=== PATIENT | male | born 1955 | race Caucasian/White ===

== ENCOUNTER 2018-01-31 15:31 | Observation (INO) ==
[2018-01-31] MEDS ORDERED: Sod Chloride 0.9% Inj 1,000 ML IV.SIG ONE (15:57)
--- NOTE | 2018-01-31 16:13 | ED ---
HPI General Chief Complaint: Syncope Stated Complaint: Syncope Time Seen by Provider: 01/31/18 15:57 Source: patient and EMS Mode of arrival: EMS Limitations: no limitations History of Present Illness HPI narrative: Patient is a 62-year-old male presenting to the [facility] for evaluation after syncopal episode. Patient was standing in line at [facility] when he passed out. Patient was reportedly out for approximately 30 seconds per bystanders report. There was positive LOC, patient did hit his head. Patient states he felt dizzy and everything went black prior to this episode. He denies any chest pain, shortness of breath, headache. He denied any of the symptoms other than lightheadedness prior to passing out. When EMS arrived on scene patient was pale, diaphoretic and his heart rate was in the 30s. Patient received a 500 cc fluid bolus in route. He reports drinking 2 beers today, he ate lunch. He denies any daily alcohol use, he is a tobacco user, he denies any illicit drug use. He denies any history of syncopal episodes in the past. He denies any significant past medical history. Symptom onset was sudden, symptoms moderate, no known exacerbating factors. Related Data Home Medications Medication Instructions Recorded Confirmed varenicline [Chantix] 0.5 mg PO BID 01/31/18 01/31/18 Allergies Allergy/AdvReac Type Severity Reaction Status Date / Time No Known Allergies Allergy Verified 01/31/18 15:45 Review of Systems ROS: all other systems reviewed are negative PMFSH Medical History Medical History Patient denies medical problems (Acute) Surgical History Surgical History No history of previous surgery (Acute) Social History Social History Substance History: No History of Abuse Smoking Status: Current every day smoker Tobacco Type: Cigarettes How Often Do You Have a Drink Containing Alcohol: 2 to 4 times a month [facility] within the Last 8 Weeks: No Recent Out of Country Travel within the Last 8 Weeks: No Immunization History Tetanus Immunization: Unsure Exam Narrative Exam Narrative: GENERAL: Well-developed, well-nourished, alert elderly male. Presenting in no acute distress. SKIN: Focused skin assessment warm/dry. HEAD: Atraumatic. Normocephalic. EYES: Pupils equal and round. No scleral icterus. No injection or drainage. ENT: No nasal bleeding or discharge. Mucous membranes pink and moist. NECK: Trachea midline. No JVD. CARDIOVASCULAR: Bradycardic. No murmur appreciated. RESPIRATORY: No accessory muscle use. Clear to auscultation. Breath sounds equal bilaterally. GASTROINTESTINAL: Abdomen soft, non-tender, nondistended. Hepatic and splenic margins not palpable. MUSCULOSKELETAL: No obvious deformities. No clubbing. No cyanosis. No edema. NEUROLOGICAL: Awake and alert. No obvious cranial nerve deficits. Motor grossly within normal limits. Normal speech. PSYCHIATRIC: Appropriate mood and affect; insight and judgment normal. Course Initial Documented Vital Signs Temperature 97.8 F 01/31/18 15:39 Pulse Rate 51 L 01/31/18 15:39 Respiratory Rate 16 01/31/18 15:39 Blood Pressure 111/71 01/31/18 15:39 Pulse Oximetry 99 01/31/18 15:39 Last Documented Vital Signs Temperature 97.8 F 01/31/18 15:39 Pulse Rate 51 L 01/31/18 15:39 Respiratory Rate 16 01/31/18 15:39 Blood Pressure 111/71 01/31/18 15:39 Pulse Oximetry 99 01/31/18 15:39 Medical Decision Making MDM Narrative Medical decision making narrative: Patient presents via EMS after syncopal episode. Labs and imaging ordered and pending. Initial EKG shows sinus bradycardia with a rate of 50. Patient's vital signs are otherwise stable. Labs reviewed, no acute findings. CT of the brain and cervical spine with no acute findings, chest x-ray is unremarkable. Heart rate continues to be in the mid to low 50s, could be the cause of patient's syncopal episodes. Patient will be admitted, the residents accepted admit under Dr. Quispe. Admit orders placed. Patient was advised on clinical findings and plan of care and is agreeable. Medical Screen Exam Complete: Yes Emergency Medical Condition: Yes Differential Diagnosis Differential Diagnosis: Vasovagal episode versus symptomatic bradycardia versus metabolic abnormality versus other Lab Data Lab results reviewed: Yes I reviewed the patient's lab results. Result diagrams: 01/31/18 16:56 01/31/18 16:56 Lab Results 01/31/18 01/31/18 01/31/18 Range/Units 16:56 16:56 16:56 WBC 7.4 (4.0-11.0) th/mm3 RBC 3.96 L (4.50-5.90) mil/mm3 Hgb 13.3 (13.0-17.0) gm/dL Hct 37.3 L (39.0-51.0) % MCV 94.1 (80.0-100.0) fL MCH 33.6 (27.0-34.0) pg MCHC 35.7 (32.0-36.0) % RDW 13.2 (11.6-17.2) % Plt Count 211 (150-450) th/mm3 MPV 8.2 (7.0-11.0) fL Neut % (Auto) 52.8 (16.0-70.0) % Lymph % (Auto) 38.2 (9.0-44.0) % Nolan % (Auto) 6.9 (0.0-8.0) % Eos % (Auto) 1.9 (0.0-4.0) % Baso % (Auto) 0.2 (0.0-2.0) % Neut # (Auto) 3.9 (1.8-7.7) th/mm3 Lymph # (Auto) 2.8 (1.0-4.8) th/mm3 Nolan # (Auto) 0.5 (0.0-0.9) th/mm3 Eos # (Auto) 0.1 (0.0-0.4) th/mm3 Baso # (Auto) 0.0 (0.0-0.2) th/mm3 WBC Differential . Differential Comment Auto diff final PT 10.6 (9.8-11.6) sec INR 1.0 Ratio APTT 23.1 L (23.4-31.7) sec Sodium 143 (136-145) meq/L Potassium 3.5 (3.5-5.1) meq/L Chloride 112 H (98-107) meq/L Carbon Dioxide 26.6 (21.0-32.0) meq/L Anion Gap 4 L (5-15) meq/L BUN 19 H (7-18) mg/dL Creatinine 1.12 (0.60-1.30) mg/dL Estimated GFR 66 L (>89) mL/min Random Glucose 86 (74-106) mg/dL Calcium 7.1 L* (8.5-10.1) mg/dL Prot Corrected Calcium 7.8 L (8.5-10.1) mg/dL Magnesium 1.9 (1.5-2.5) mg/dL Total Bilirubin 0.3 (0.2-1.0) mg/dL AST 9 L (15-37) U/L ALT 13 (12-78) U/L Alkaline Phosphatase 39 L (45-117) U/L Troponin I Less than 0.02 L (0.02-0.05) ng/mL Total Protein 5.7 L (6.4-8.2) g/dL Albumin 3.0 L (3.4-5.0) g/dL Imaging Data Radiologist's impression: Cervical Spine CT 01/31/18 15:57 CONCLUSION: 1. No acute fracture or subluxation. Chest X-Ray 01/31/18 15:57 CONCLUSION: 1. No acute cardiopulmonary disease. Head CT 01/31/18 15:57 CONCLUSION: 1. No acute intracranial abnormality. . Discharge Plan Discharge Disposition Patient Disposition: 30 Still Patient Discharge Condition Condition: Stable Discharge Details Diagnosis: Syncope, Symptomatic bradycardia Physicians Team ED Provider: Heide Orellana ED Midlevel Provider: Triny Diane Primary Care Provider: UNKNOWN, Rxs /Orders / Referrals /Forms Prescriptions: No Action varenicline [Chantix] 0.5 mg Tablet 0.5 mg PO BID RF: 0 Status ED Status: Admitted Observation Patient
--- NOTE | 2018-01-31 16:41 | XR ---
EXAM DATE: 01/31/2018 4:40 PM EST AGE/SEX: 62 years / Male INDICATIONS: Patient states an episode of syncope, feeling of general weakness. CLINICAL DATA: This is the patient's initial encounter. Patient reports that signs and symptoms have been present for 1 day and indicates a pain score of 0/10. MEDICAL/SURGICAL HISTORY: None. None. COMPARISON: No prior exams available for comparison. FINDINGS: A single AP view of the chest demonstrates the lungs to be symmetrically aerated without evidence of mass, infiltrate or effusion. The cardiomediastinal contours are unremarkable. Osseous structures a re intact. CONCLUSION: 1. No acute cardiopulmonary disease. Electronically signed by: Fede Dangelo MD 01/31/2018 4:40 PM EST
[2018-01-31 17:20] LABS: Baso % (Auto) 0.2 % (0.0-2.0); Eos # (Auto) 0.1 th/mm3 (0.0-0.4); Eos % (Auto) 1.9 % (0.0-4.0); Hematocrit 37.3 % (39.0-51.0); Hemoglobin 13.3 gm/dL (13.0-17.0); Lymph # (Auto) 2.8 th/mm3 (1.0-4.8); Lymph % (Auto) 38.2 % (9.0-44.0); Mean Corpuscular HGB Conc 35.7 % (32.0-36.0); Mean Corpuscular Hemoglobin 33.6 pg (27.0-34.0); Mean Corpuscular Volume 94.1 fL (80.0-100.0); Mean Platelet Volume 8.2 fL (7.0-11.0); Mono # (Auto) 0.5 th/mm3 (0.0-0.9); Mono % (Auto) 6.9 % (0.0-8.0); Neut # (Auto) 3.9 th/mm3 (1.8-7.7); Neut % (Auto) 52.8 % (16.0-70.0); Platelet Count 211 th/mm3 (150-450); Red Blood Count 3.96 mil/mm3 (4.50-5.90); Red Cell Distribution Width 13.2 % (11.6-17.2); White Blood Count 7.4 th/mm3 (4.0-11.0)
[2018-01-31 17:28] LABS: Activated Partial Thrombo Time 23.1 sec (23.4-31.7); Prothrombin Time 10.6 sec (9.8-11.6)
[2018-01-31 17:45] LABS: Alanine Aminotransferase 13 U/L (12-78); Anion Gap 4 meq/L (5-15); Aspartate Aminotransferase 9 U/L (15-37); Blood Urea Nitrogen 19 mg/dL (7-18); Calcium 7.1 mg/dL (8.5-10.1); Carbon Dioxide 26.6 meq/L (21.0-32.0); Chloride 112 meq/L (98-107); Glomerular Filtration Rate 66 mL/min (>89); Glucose,Random 86 mg/dL (74-106); Magnesium 1.9 mg/dL (1.5-2.5); Potassium 3.5 meq/L (3.5-5.1); Sodium 143 meq/L (136-145)
--- NOTE | 2018-01-31 17:48 | CT ---
EXAM DATE: 01/31/2018 5:46 PM EST AGE/SEX: 62 years / Male INDICATIONS: Syncopal episode; fall. CLINICAL DATA: This is the patient's initial encounter. Patient reports that signs and symptoms have been present for 1 day and indicates a pain score of 5/10. MEDICAL/SURGICAL HISTORY: None. None. RADIATION DOSE: 66.34 CTDI (mGy) COMPARISON: No prior exams available for comparison. TECHNIQUE: CT of the head without contrast. Using automated exposure control and adjustment of the mA and/or kV according to patient size, radiation dose was kept as low as reasonably achievable to ob tain optimal diagnostic quality images. DICOM format image data is available electronically for revi ew and comparison. FINDINGS: Cerebrum: Mild diffuse cerebral atrophy. The ventricles are normal for age. No evidence of midline s hift, mass lesion, hemorrhage or acute infarction. No extraaxial fluid collections are seen. Posterior Fossa: The cerebellum and brainstem are intact. The 4th ventricle is midline. The cerebe llopontine angle is unremarkable. Extracranial: The visualized portion of the orbits is intact. Skull: The calvaria is intact. No evidence of skull fracture. CONCLUSION: 1. No acute intracranial abnormality. . Electronically signed by: Fede Dangelo MD 01/31/2018 5:47 PM EST
[2018-01-31 17:50] LABS: Alkaline Phosphatase 39 U/L (45-117); Total Protein 5.7 g/dL (6.4-8.2)
--- NOTE | 2018-01-31 17:51 | CT ---
EXAM DATE: 01/31/2018 5:47 PM EST AGE/SEX: 62 years / Male INDICATIONS: Fall following syncopal episode. CLINICAL DATA: This is the patient's initial encounter. Patient reports that signs and symptoms have been present for 1 day and indicates a pain score of 5/10. MEDICAL/SURGICAL HISTORY: None. None. RADIATION DOSE: 20.44 CTDI (mGy) COMPARISON: No prior exams available for comparison. TECHNIQUE: Contiguous axial images were obtained using helical multirow detector technique. The vol umetric data was post-processed with multiplanar reconstruction in oblique axial, sagittal, and coron al planes. Using automated exposure control and adjustment of the mA and/or kV according to patient s ize, radiation dose was kept as low as reasonably achievable to obtain optimal diagnostic quality jerson ges. DICOM format image data is available electronically for review and comparison. FINDINGS: OSSEOUS STRUCTURES: Vertebral body heights are maintained. Osseous structures are intact without evid ence for acute bony fracture. Dens is intact. ALIGNMENT: Sagittal alignment is maintained. There is a normal C1-2 relationship. Facets are normal ly aligned. SOFT TISSUES: There is no significant prevertebral soft tissue hematoma. No significant cervical sharon nopathy or gross mass. The thyroid appears unremarkable. Visualized lung apices are clear without pn eumothorax. ADDITIONAL FINDINGS: Mild degenerative changes of the lower cervical spine most prominently at C6-7. Bony central canal is patent. Bony neural foramina are patent. CONCLUSION: 1. No acute fracture or subluxation. Electronically signed by: Fede Dangelo MD 01/31/2018 5:49 PM EST
--- NOTE | 2018-01-31 19:02 | P.HPFP ---
History of Present Illness Primary Care Physician: UNKNOWN <Orestes Quispe 02/01/18 20:43> UNKNOWN <Jagdish Flower 01/31/18 19:02> History of Present Illness: 62-year-old male with no significant past medical history who is in [facility] visiting his daughters for the holidays presented to the emergency room after a syncopal episode. Patient was in his normal state of health and states on the day of admission he had lunch with his daughters and a couple of beers (doesn't normally drink alcohol). He states he normally drinks juice/water throughout the day but today he only had the beers and coffee in the morning. He then accompanied his daughter to a bingo ervin while standing in a crowded/warm area he fainted. He states he remembers being agitated that the line was moving slowly and the next thing he knew he was on the ground. Witnesses stated he fell to the ground and hit his head - was told he was out for roughly 30 seconds. He was told he stood back up and fainted again but he does not recall this. Witnesses also stated he appeared very pale and diaphoretic. EMS was called and they reported a HR in the 30's on arrival. Patient states he has "had a slow heart rate his whole life." He states he never had any pain and denies any pain now. no loss of bowel/urinary incontinence No chest pain, SOB, N/V, vision changes, SRIVASTAVA, diarrhea, vomiting PMH: none Past surgical hx: none Family Hx: mother had cervical cancer, father in old age Meds: Chantix Allergies: NKDA Social history: lives in [place] works in a warehouse, is currently taking Chantix to help him quit smoking (had been 1 ppd for 40 years but has weaned to less than 1/4 ppd), rare alcohol use, no drugs <Jagdish Flower 01/31/18 20:04> - Diagnosis (1) Syncope (2) Hypocalcemia (3) Nutrition, metabolism, and development symptoms <AdarshOrestes ibanez 02/01/18 20:43> (1) Syncope (2) Hypocalcemia (3) Nutrition, metabolism, and development symptoms <Jagdish Flower 01/31/18 19:30> Review of Systems All other systems reviewed negative except as stated in HPI <Jagdish Flower - 01/31/18 20:04> FOR[facility]LY [facility] - History History Provided By: Patient <Jagdish Flower 01/31/18 19:02> - Medical History Medical History: Medical History (Last Reviewed 01/31/18 @ 16:11 by ANABEL Bermudez) Patient denies medical problems <Orestes Quispe 02/01/18 20:43> Medical History (Last Reviewed 01/31/18 @ 16:11 by ANABEL Bermudez) Patient denies medical problems <Jagdish Flower 01/31/18 19:02> - Surgical History Surgical History: Surgical History (Last Reviewed 01/31/18 @ 16:11 by ANABEL Bermudez) No history of previous surgery <Orestes Quispe Paul Joe 02/01/18 20:43> Surgical History (Last Reviewed 01/31/18 @ 16:11 by ANABEL Bermudez) No history of previous surgery <Jagdish Flower 01/31/18 19:02> - Tobacco History Tobacco Use In Past 30 Days: Yes <Jagdish Flower 01/31/18 19:02> Smoking Status: Current every day smoker <Jagdish Flower 01/31/18 19:02> Tobacco Type: Cigarettes <Jagdish Flower 01/31/18 19:02> - Alcohol History How Often Do You Have a Drink Containing Alcohol: 2 to 4 times a month <Jagdish Flower 01/31/18 19:02> - Substance Use History Substance History: No History of Abuse <Jagdish Flower 01/31/18 19:02> - Travel History Recent Travel in the [facility] Within the Last 8 Weeks: No <Jagdish Flower 01/31 19:02> Recent Travel Out of the Country Within the Last 8 Weeks: No <Jagdish Flower 01/31/18 19:02> - Immunization History Tetanus Immunization: Unsure <Jagdish Flower 01/31/18 19:02> Medications and Allergies Allergies Allergy/AdvReac Type Severity Reaction Status Date / Time No Known Allergies Allergy Verified 01/31/18 15:45 <Orestes Quispe 02/01/18 20:43> Home Medications Medication Instructions Recorded Confirmed Type varenicline [Chantix] 0.5 mg PO BID 01/31/18 01/31/18 History <Orestes Quispe - 02/01/18 20:43> Active Medications: Active Medications Acetaminophen (Tylenol) 650 mg PO Q6HR PRN PRN Reason: PAIN SCALE 1 TO 2 Last Admin: 02/01/18 14:05 Dose: 650 mg Vitamin D (Vitamin D3) 1,000 unit PO DAILY RODOLFO <Orestes Quispe - 02/01/18 20:43> Exam Vital signs: Vital Signs 01/31/18 22:15 02/01/18 00:00 02/01/18 03:44 Temperature 98.1 F Pulse Rate 49 L 56 L Respiratory Rate 20 Blood Pressure 124/68 Pulse Oximetry 99 98 02/01/18 07:54 02/01/18 08:00 02/01/18 12:13 Temperature 97.9 F 97.5 F L Pulse Rate 44 L 72 43 L Respiratory Rate 16 18 Blood Pressure 123/73 128/68 Pulse Oximetry 97 98 02/01/18 16:48 Temperature 98.0 F Pulse Rate 45 L Respiratory Rate 18 Blood Pressure 146/77 H Pulse Oximetry 95 Intake & Output 02/01/18 02/01/18 02/02/18 06:59 18:59 06:59 Intake Total 480 / 480 Balance 480 / 480 Weight 90.718 kg Intake: Oral 480 / 480 Other: # Voids 5 4 Weight On Admission 90.718 kg <Orestes Quispe - 02/01/18 20:43> Vital Signs 01/31/18 15:39 Temperature 97.8 F Pulse Rate 51 L Respiratory Rate 16 Blood Pressure 111/71 Pulse Oximetry 99 Intake & Output 01/30/18 01/31/18 01/31/18 18:59 06:59 18:59 Intake Total 1000 / 1000 Balance 1000 / 1000 Weight 91.626 kg Intake: IV 1000 / 1000 NS Inj 1,000 ML @ Wide Open IV. 1000 / 1000 SIG BOLUS ONE Rx#:[id number] <Jagdish Flower - 01/31/18 19:02> Narrative: GENERAL: Pleasant gentleman laying in bed in no acute distress. Answering questions appropriately. SKIN: Warm and dry. HEAD: Atraumatic. Normocephalic. No tenderness on exam EYES: Pupils equal and round. No scleral icterus. No injection or drainage. ENT: No nasal bleeding or discharge. Mucous membranes pink and moist. NECK: Trachea midline. No JVD. CARDIOVASCULAR: Regular rate and rhythm. Heart rate in the 50s RESPIRATORY: No accessory muscle use. Clear to auscultation. Breath sounds equal bilaterally. GASTROINTESTINAL: Abdomen soft, non-tender, nondistended. Hepatic and splenic margins not palpable. MUSCULOSKELETAL: Extremities without clubbing, cyanosis, or edema. No obvious deformities. NEUROLOGICAL: Awake and alert. No cranial nerve deficits. Motor grossly within normal limits. Five out of 5 muscle strength in the arms and legs. Normal speech. PSYCHIATRIC: Appropriate mood and affect; insight and judgment normal. <Jagdish Flower - 01/31/18 20:04> Results - Labs Result diagrams: 02/01/18 06:36 02/01/18 06:36 <Orestes Quispe - 02/01/18 20:43> Abnormal lab results 01/31/18 01/31/18 01/31/18 Range/Units 16:56 16:56 18:49 RBC (4.50-5.90) mil/mm3 Hgb (13.0-17.0) gm/dL Hct (39.0-51.0) % Chloride (98-107) meq/L Estimated GFR (>89) mL/min Calcium (8.5-10.1) mg/dL Troponin I (0.02-0.05) ng/mL Vitamin D 25-Hydroxy 20.0 L (30-100) ng/mL TSH 4.620 H (0.358-3.740) uIU/mL U Cannabinoids Screen Pos H (Neg) 02/01/18 02/01/18 02/01/18 Range/Units 06:36 06:36 06:36 RBC 4.06 L (4.50-5.90) mil/mm3 Hgb 12.9 L (13.0-17.0) gm/dL Hct 38.6 L (39.0-51.0) % Chloride 111 H (98-107) meq/L Estimated GFR 70 L (>89) mL/min Calcium 8.0 L D (8.5-10.1) mg/dL Troponin I Less than 0.02 L (0.02-0.05) ng/mL Vitamin D 25-Hydroxy (30-100) ng/mL TSH (0.358-3.740) uIU/mL U Cannabinoids Screen (Neg) Short CBC 02/01/18 Range/Units 06:36 WBC 7.6 (4.0-11.0) th/mm3 Hgb 12.9 L (13.0-17.0) gm/dL Hct 38.6 L (39.0-51.0) % Plt Count 192 (150-450) th/mm3 [facility] 02/01/18 06:36 Sodium 142 Potassium 4.2 Chloride 111 H Carbon Dioxide 25.7 BUN 16 Creatinine 1.06 Calcium 8.0 L D Cardiac Enzymes 02/01/18 Range/Units 06:36 Troponin I Less than 0.02 L (0.02-0.05) ng/mL <Orestes Quispe - 02/01/18 20:43> Abnormal lab results 01/31/18 01/31/18 01/31/18 Range/Units 16:56 16:56 16:56 RBC 3.96 L (4.50-5.90) mil/mm3 Hct 37.3 L (39.0-51.0) % APTT 23.1 L (23.4-31.7) sec Chloride 112 H (98-107) meq/L Anion Gap 4 L (5-15) meq/L BUN 19 H (7-18) mg/dL Estimated GFR 66 L (>89) mL/min Calcium 7.1 L* (8.5-10.1) mg/dL Prot Corrected Calcium 7.8 L (8.5-10.1) mg/dL AST 9 L (15-37) U/L Alkaline Phosphatase 39 L (45-117) U/L Troponin I Less than 0.02 L (0.02-0.05) ng/mL Total Protein 5.7 L (6.4-8.2) g/dL Albumin 3.0 L (3.4-5.0) g/dL Short CBC 01/31/18 Range/Units 16:56 WBC 7.4 (4.0-11.0) th/mm3 Hgb 13.3 (13.0-17.0) gm/dL Hct 37.3 L (39.0-51.0) % Plt Count 211 (150-450) th/mm3 [facility] 01/31/18 16:56 Sodium 143 Potassium 3.5 Chloride 112 H Carbon Dioxide 26.6 BUN 19 H Creatinine 1.12 Calcium 7.1 L* Cardiac Enzymes 01/31/18 Range/Units 16:56 Troponin I Less than 0.02 L (0.02-0.05) ng/mL Liver Function 01/31/18 Range/Units 16:56 Total Bilirubin 0.3 (0.2-1.0) mg/dL AST 9 L (15-37) U/L ALT 13 (12-78) U/L Alkaline Phosphatase 39 L (45-117) U/L Albumin 3.0 L (3.4-5.0) g/dL <Jagdish Flower - 01/31/18 19:02> - Imaging Impressions Cervical Spine CT 01/31/18 15:57 CONCLUSION: 1. No acute fracture or subluxation. Chest X-Ray 01/31/18 15:57 CONCLUSION: 1. No acute cardiopulmonary disease. Head CT 01/31/18 15:57 CONCLUSION: 1. No acute intracranial abnormality. . <Jagdish Flower - 01/31/18 19:02> Caprini VTE Risk Assessment Caprini VTE Risk Assessment: Moderate/High Risk (score >= 2) <Jagdish Flower - 01/31/18 20:04> Caprini Risk Assessment Model: Point Value = 1 Point Value = 2 Point Value = 3 Point Value = 5 Age 41-60 Minor surgery BMI > 25 kg/m2 Swollen legs Varicose veins or History of unexplained or recurrent spontaneous Oral contraceptives or hormone replacement Sepsis (< 1 month) Serious lung disease, including pneumonia (< 1 month) Abnormal pulmonary function Acute myocardial infarction Congestive heart failure (< 1 month) History of inflammatory bowel disease Medical patient at bed rest Age 61-74 Arthroscopic surgery Major open surgery (> 45 min) Laparoscopic surgery (> 45 min) Malignancy Confined to bed (> 72 hours) Immobilizing plaster cast Central venous access Age >= 75 History of VTE Family history of VTE Factor V Leiden Prothrombin [id number] Lupus anticoagulant Anticardiolipin antibodies Elevated serum homocysteine Heparin-induced thrombocytopenia Other congenital or acquired thrombophilia Stroke (< 1 month) Elective arthroplasty Hip, pelvis, or leg fracture Acute spinal cord injury (< 1 month) <Orestes Quispe - 02/01/18 20:43> Point Value = 1 Point Value = 2 Point Value = 3 Point Value = 5 Age 41-60 Minor surgery BMI > 25 kg/m2 Swollen legs Varicose veins or History of unexplained or recurrent spontaneous Oral contraceptives or hormone replacement Sepsis (< 1 month) Serious lung disease, including pneumonia (< 1 month) Abnormal pulmonary function Acute myocardial infarction Congestive heart failure (< 1 month) History of inflammatory bowel disease Medical patient at bed rest Age 61-74 Arthroscopic surgery Major open surgery (> 45 min) Laparoscopic surgery (> 45 min) Malignancy Confined to bed (> 72 hours) Immobilizing plaster cast Central venous access Age >= 75 History of VTE Family history of VTE Factor V Leiden Prothrombin [id number] Lupus anticoagulant Anticardiolipin antibodies Elevated serum homocysteine Heparin-induced thrombocytopenia Other congenital or acquired thrombophilia Stroke (< 1 month) Elective arthroplasty Hip, pelvis, or leg fracture Acute spinal cord injury (< 1 month) <Jagdish Flower B - 01/31/18 20:04> Prophylaxis Regimen: Total Risk Factor Score Risk Level Prophylaxis Regimen 0-1 Low Early ambulation 2 Moderate Order ONE of the following: *Sequential Compression Device (SCD) *Heparin 5000 units SQ BID 3-4 Higher Order ONE of the following medications: *Heparin 5000 units SQ TID *Enoxaparin/Lovenox 40 mg SQ daily (WT < 150 kg, CrCl > 30 mL/min) *Enoxaparin/Lovenox 30 mg SQ daily (WT < 150 kg, CrCl > 10-29 mL/min) *Enoxaparin/Lovenox 30 mg SQ BID (WT < 150 kg, CrCl > 30 mL/min) AND/OR *Sequential Compression Device (SCD) 5 or more Highest Order ONE of the following medications: *Heparin 5000 units SQ TID (Preferred with Epidurals) *Enoxaparin/Lovenox 40 mg SQ daily (WT < 150 kg, CrCl > 30 mL/min) *Enoxaparin/Lovenox 30 mg SQ daily (WT < 150 kg, CrCl > 10-29 mL/min) *Enoxaparin/Lovenox 30 mg SQ BID (WT < 150 kg, CrCl > 30 mL/min) AND *Sequential Compression Device (SCD) <Orestes Quispe - 02/01/18 20:43> Total Risk Factor Score Risk Level Prophylaxis Regimen 0-1 Low Early ambulation 2 Moderate Order ONE of the following: *Sequential Compression Device (SCD) *Heparin 5000 units SQ BID 3-4 Higher Order ONE of the following medications: *Heparin 5000 units SQ TID *Enoxaparin/Lovenox 40 mg SQ daily (WT < 150 kg, CrCl > 30 mL/min) *Enoxaparin/Lovenox 30 mg SQ daily (WT < 150 kg, CrCl > 10-29 mL/min) *Enoxaparin/Lovenox 30 mg SQ BID (WT < 150 kg, CrCl > 30 mL/min) AND/OR *Sequential Compression Device (SCD) 5 or more Highest Order ONE of the following medications: *Heparin 5000 units SQ TID (Preferred with Epidurals) *Enoxaparin/Lovenox 40 mg SQ daily (WT < 150 kg, CrCl > 30 mL/min) *Enoxaparin/Lovenox 30 mg SQ daily (WT < 150 kg, CrCl > 10-29 mL/min) *Enoxaparin/Lovenox 30 mg SQ BID (WT < 150 kg, CrCl > 30 mL/min) AND *Sequential Compression Device (SCD) <Jagdish Flower B - 01/31/18 19:02> Assessment and Plan - Assessment (1) Syncope Code(s): R55 - Syncope and collapse Status: Acute (2) Hypocalcemia Code(s): E83.51 - Hypocalcemia Status: Acute (3) Nutrition, metabolism, and development symptoms Code(s): R63.8 - Other symptoms and signs concerning food and fluid intake Status: Acute <Orestes Quispe - 02/01/18 20:43> (1) Syncope Code(s): R55 - Syncope and collapse Status: Acute Plan: Patient with no significant past medical history presented after an episode of syncope in which he struck his head Denies any chest pain, shortness of breath, headache or changes in vision Was reported to be diaphoretic, noted to have pallor, occurred in a warm/ crowded place EMS reported a HR in the 30's on arrival. Vital signs on admission were within normal limits aside from a heart rate in the 50s Differential includes vaso-vagal syncope, symptomatic bradycardia, orthostatic hypotension -Head CT, cervical spine CT, and chest x-ray were all negative -EKG on admission showed sinus bradycardia with a heart rate of 50 -UA benign, CMP significant only for hypocalcemia. Troponin negative. CBC WNL -Will admit to observation overnight -Continuous telemetry -TSH pending -Ordering orthostatic blood pressures x1 -Received 1 L bolus of normal saline in the ED -Repeat CBC, BMP in the morning (2) Hypocalcemia Code(s): E83.51 - Hypocalcemia Status: Acute Plan: CMP on admission notable for hypocalcemia with a calcium of 7.8 -Magnesium within normal limits on admission -Ordering vitamin D level -Repeat BMP in the morning (3) Nutrition, metabolism, and development symptoms Code(s): R63.8 - Other symptoms and signs concerning food and fluid intake Status: Acute Plan: Regular diet SCD's for DVT prophylaxis overnight, consider adding pharmacologic prophylaxis if patient stays longer than 1 day Will replace electrolytes as needed <Jagdish Flower - 01/31/18 19:30> - Assessment and Plan 62-year-old male with no significant past medical history presented after an episode of syncope. Differential includes vasovagal syncope, symptomatic bradycardia, orthostatic hypotension. Admitting observation for further monitoring. <Jagdish Flower - 01/31/18 20:04> - Attending Attestation The exam, history, and the medical decision-making described in the above note were completed with the assistance of the resident physician. I reviewed and agree with the findings presented. I attest that I had a [id number] encounter with the patient on the next day, and personally performed and documented my assessment and findings in the medical record. <Orestes Quispe - 02/01/18 20:43> <Jagdish Flower - Last Filed: 01/31/18 19:30> (1) Syncope Qualifiers: Syncope type: unspecified Qualified Code(s): R55 - Syncope and collapse <Orestes Quispe - Last Filed: 02/01/18 20:43> (1) Syncope Qualifiers: Syncope type: unspecified Qualified Code(s): R55 - Syncope and collapse <Jagdish Flower B - Last Filed: 01/31/18 19:30> (1) Syncope Qualifiers: Syncope type: unspecified Qualified Code(s): R55 - Syncope and collapse <Orestes Quispe K - Last Filed: 02/01/18 20:43> (1) Syncope Qualifiers: Syncope type: unspecified Qualified Code(s): R55 - Syncope and collapse
[2018-01-31 19:18] LABS: Bilirubin,Urine Negative (Negative); Clarity,Urine Clear (Clear); Color,Urine Yellow (Yellw/Straw); Glucose,Urine (UA) Negative (Negative); Hyaline Casts,Urine 3 /lpf (0-3); Leukocyte Esterase,Urine Negative (Negative); Mucus,Urine Few /lpf (Occasional); Nitrite,Urine Negative (Negative); Specific Gravity,Urine 1.011 (1.002-1.035); Squamous Epithelial Cell,Urine <1 /hpf (0-5)
[2018-01-31 21:25] LABS: Amphetamine Screen,Urine Neg (Neg); Barbiturate Screen,Urine Neg (Neg); Cannabinoid Screen,Urine Pos (Neg); Cocaine Screen,Urine Neg (Neg)
[2018-01-31 21:28] LABS: Opiate Screen,Urine Neg (Neg)
[2018-02-01 07:10] LABS: Eos # (Auto) 0.2 th/mm3 (0.0-0.4); Eos % (Auto) 2.6 % (0.0-4.0); Hematocrit 38.6 % (39.0-51.0); Hemoglobin 12.9 gm/dL (13.0-17.0); Lymph # (Auto) 2.6 th/mm3 (1.0-4.8); Lymph % (Auto) 34.2 % (9.0-44.0); Mean Corpuscular HGB Conc 33.3 % (32.0-36.0); Mean Corpuscular Hemoglobin 31.7 pg (27.0-34.0); Mean Corpuscular Volume 95.1 fL (80.0-100.0); Mean Platelet Volume 7.5 fL (7.0-11.0); Mono # (Auto) 0.6 th/mm3 (0.0-0.9); Mono % (Auto) 7.3 % (0.0-8.0); Neut # (Auto) 4.2 th/mm3 (1.8-7.7); Neut % (Auto) 55.9 % (16.0-70.0); Platelet Count 192 th/mm3 (150-450); Red Blood Count 4.06 mil/mm3 (4.50-5.90); Red Cell Distribution Width 13.4 % (11.6-17.2); White Blood Count 7.6 th/mm3 (4.0-11.0)
[2018-02-01 07:27] LABS: Carbon Dioxide 25.7 meq/L (21.0-32.0); Potassium 4.2 meq/L (3.5-5.1)
--- NOTE | 2018-02-01 12:32 | P.HPFP ---
History of Present Illness Primary Care Physician: UNKNOWN History of Present Illness: Agree with resident histories and ROS as discussed in person with Dr Flower this AM and in documentation review. Interval history: no episodes of light headedness, no cp/sob. walking around fine. no seizure like activity. no palpitations. no diaphoresis. no events overnight on his telemetry. Chantix has been helpful for him in quitting smoking. - Diagnosis (1) Syncope (2) Hypocalcemia (3) Nutrition, metabolism, and development symptoms PMFSH - History History Provided By: Patient - Medical History Medical History: Medical History (Last Reviewed 01/31/18 @ 16:11 by ANABEL Bermudez) Patient denies medical problems - Surgical History Surgical History: Surgical History (Last Reviewed 01/31/18 @ 16:11 by ANABEL Bermduez) No history of previous surgery - Tobacco History Second Hand Smoke Exposure: Yes Tobacco Use In Past 30 Days: Yes Smoking Status: Current every day smoker Tobacco Type: Cigarettes - Alcohol History How Often Do You Have a Drink Containing Alcohol: 2 to 4 times a month - Substance Use History Substance History: No History of Abuse - Travel History Recent Travel in the [place] Within the Last 8 Weeks: No Recent Travel Out of the Country Within the Last 8 Weeks: No - Immunization History Tetanus Immunization: Unsure Medications and Allergies Allergies Allergy/AdvReac Type Severity Reaction Status Date / Time No Known Allergies Allergy Verified 01/31/18 15:45 Home Medications Medication Instructions Recorded Confirmed Type varenicline [Chantix] 0.5 mg PO BID 01/31/18 01/31/18 History Exam Vital signs: Vital Signs 01/31/18 15:39 01/31/18 19:06 01/31/18 22:15 Temperature 97.8 F Pulse Rate 51 L 51 L Respiratory Rate 16 17 Blood Pressure 111/71 139/77 Pulse Oximetry 99 99 99 02/01/18 00:00 02/01/18 03:44 02/01/18 07:54 Temperature 98.1 F 97.9 F Pulse Rate 49 L 56 L 44 L Respiratory Rate 20 16 Blood Pressure 124/68 123/73 Pulse Oximetry 98 97 02/01/18 12:13 Temperature 97.5 F L Pulse Rate 43 L Respiratory Rate 18 Blood Pressure 128/68 Pulse Oximetry 98 Intake & Output 01/31/18 02/01/18 02/01/18 18:59 06:59 18:59 Intake Total 1000 / 1000 480 / 480 Balance 1000 / 1000 480 / 480 Weight 91.626 kg 90.718 kg Intake: IV 1000 / 1000 NS Inj 1,000 ML @ Wide Open IV. 1000 / 1000 SIG BOLUS ONE Rx#:[id number] Oral 480 / 480 Other: # Voids 5 Weight On Admission 90.718 kg - Constitutional no acute distress, average body habitus, cooperative - Routine HEENT Exam Head: Present: normocephalic, atraumatic. Absent: hematoma Eye: Present: EOMI, PERRL ENT: Present: mucous membranes moist, oropharynx clear - Routine Respiratory Exam Present: CTA bilaterally. Absent: accessory muscle use, wheezes, crackles - Routine Cardiovascular Exam Present: S1, S2, bradycardia. Absent: murmur - Routine Abdominal Exam Present: soft, normoactive bowel sounds. Absent: distended, rebound - Routine Extremities Exam Absent: cyanosis, clubbing, edema - Routine Skin Exam Present: intact. Absent: cyanosis, erythema - Routine Neurological Exam Present: alert, oriented X3, CN II-XII intact, normal reflexes, vision grossly intact, hearing grossly intact, normal speech. Absent: sensory deficit, motor deficit, pronator drift, altered mental status, clonus, facial asymmetry, tremors Results - Labs Result diagrams: 02/01/18 06:36 02/01/18 06:36 Abnormal lab results 01/31/18 01/31/18 01/31/18 Range/Units 16:56 16:56 16:56 RBC 3.96 L (4.50-5.90) mil/mm3 Hgb (13.0-17.0) gm/dL Hct 37.3 L (39.0-51.0) % APTT 23.1 L (23.4-31.7) sec Chloride 112 H (98-107) meq/L Anion Gap 4 L (5-15) meq/L BUN 19 H (7-18) mg/dL Estimated GFR 66 L (>89) mL/min Calcium 7.1 L* (8.5-10.1) mg/dL Prot Corrected Calcium 7.8 L (8.5-10.1) mg/dL AST 9 L (15-37) U/L Alkaline Phosphatase 39 L (45-117) U/L Troponin I Less than 0.02 L (0.02-0.05) ng/mL Total Protein 5.7 L (6.4-8.2) g/dL Albumin 3.0 L (3.4-5.0) g/dL Vitamin D 25-Hydroxy (30-100) ng/mL TSH (0.358-3.740) uIU/mL Urine Mucus (Occasional) /lpf U Cannabinoids Screen (Neg) 01/31/18 01/31/18 01/31/18 Range/Units 16:56 16:56 18:49 RBC (4.50-5.90) mil/mm3 Hgb (13.0-17.0) gm/dL Hct (39.0-51.0) % APTT (23.4-31.7) sec Chloride (98-107) meq/L Anion Gap (5-15) meq/L BUN (7-18) mg/dL Estimated GFR (>89) mL/min Calcium (8.5-10.1) mg/dL Prot Corrected Calcium (8.5-10.1) mg/dL AST (15-37) U/L Alkaline Phosphatase (45-117) U/L Troponin I (0.02-0.05) ng/mL Total Protein (6.4-8.2) g/dL Albumin (3.4-5.0) g/dL Vitamin D 25-Hydroxy 20.0 L (30-100) ng/mL TSH 4.620 H (0.358-3.740) uIU/mL Urine Mucus Few H (Occasional) /lpf U Cannabinoids Screen (Neg) 01/31/18 02/01/18 02/01/18 Range/Units 18:49 06:36 06:36 RBC 4.06 L (4.50-5.90) mil/mm3 Hgb 12.9 L (13.0-17.0) gm/dL Hct 38.6 L (39.0-51.0) % APTT (23.4-31.7) sec Chloride 111 H (98-107) meq/L Anion Gap (5-15) meq/L BUN (7-18) mg/dL Estimated GFR 70 L (>89) mL/min Calcium 8.0 L D (8.5-10.1) mg/dL Prot Corrected Calcium (8.5-10.1) mg/dL AST (15-37) U/L Alkaline Phosphatase (45-117) U/L Troponin I (0.02-0.05) ng/mL Total Protein (6.4-8.2) g/dL Albumin (3.4-5.0) g/dL Vitamin D 25-Hydroxy (30-100) ng/mL TSH (0.358-3.740) uIU/mL Urine Mucus (Occasional) /lpf U Cannabinoids Screen Pos H (Neg) 02/01/18 Range/Units 06:36 RBC (4.50-5.90) mil/mm3 Hgb (13.0-17.0) gm/dL Hct (39.0-51.0) % APTT (23.4-31.7) sec Chloride (98-107) meq/L Anion Gap (5-15) meq/L BUN (7-18) mg/dL Estimated GFR (>89) mL/min Calcium (8.5-10.1) mg/dL Prot Corrected Calcium (8.5-10.1) mg/dL AST (15-37) U/L Alkaline Phosphatase (45-117) U/L Troponin I Less than 0.02 L (0.02-0.05) ng/mL Total Protein (6.4-8.2) g/dL Albumin (3.4-5.0) g/dL Vitamin D 25-Hydroxy (30-100) ng/mL TSH (0.358-3.740) uIU/mL Urine Mucus (Occasional) /lpf U Cannabinoids Screen (Neg) Short CBC 01/31/18 02/01/18 Range/Units 16:56 06:36 WBC 7.4 7.6 (4.0-11.0) th/mm3 Hgb 13.3 12.9 L (13.0-17.0) gm/dL Hct 37.3 L 38.6 L (39.0-51.0) % Plt Count 211 192 (150-450) th/mm3 BMP 01/31/18 02/01/18 16:56 06:36 Sodium 143 142 Potassium 3.5 4.2 Chloride 112 H 111 H Carbon Dioxide 26.6 25.7 BUN 19 H 16 Creatinine 1.12 1.06 Calcium 7.1 L* 8.0 L D Cardiac Enzymes 01/31/18 02/01/18 Range/Units 16:56 06:36 Troponin I Less than 0.02 L Less than 0.02 L (0.02-0.05) ng/mL Liver Function 01/31/18 Range/Units 16:56 Total Bilirubin 0.3 (0.2-1.0) mg/dL AST 9 L (15-37) U/L ALT 13 (12-78) U/L Alkaline Phosphatase 39 L (45-117) U/L Albumin 3.0 L (3.4-5.0) g/dL Urine 01/31/18 Range/Units 18:49 Urine Color Yellow (Yellw/Straw) Urine Clarity Clear (Clear) Urine pH 6.0 (5.0-8.5) Ur Specific [place] 1.011 (1.002-1.035) Urine Protein Negative (Neg-Trace) mg/dL Urine Glucose (UA) Negative (Negative) mg/dL - Imaging Impressions Cervical Spine CT 01/31/18 15:57 CONCLUSION: 1. No acute fracture or subluxation. Chest X-Ray 01/31/18 15:57 CONCLUSION: 1. No acute cardiopulmonary disease. Head CT 01/31/18 15:57 CONCLUSION: 1. No acute intracranial abnormality. . Caprini VTE Risk Assessment Caprini VTE Risk Assessment: Moderate/High Risk (score >= 2) Caprini Risk Assessment Model: Point Value = 1 Point Value = 2 Point Value = 3 Point Value = 5 Age 41-60 Minor surgery BMI > 25 kg/m2 Swollen legs Varicose veins or History of unexplained or recurrent spontaneous Oral contraceptives or hormone replacement Sepsis (< 1 month) Serious lung disease, including pneumonia (< 1 month) Abnormal pulmonary function Acute myocardial infarction Congestive heart failure (< 1 month) History of inflammatory bowel disease Medical patient at bed rest Age 61-74 Arthroscopic surgery Major open surgery (> 45 min) Laparoscopic surgery (> 45 min) Malignancy Confined to bed (> 72 hours) Immobilizing plaster cast Central venous access Age >= 75 History of VTE Family history of VTE Factor V Leiden Prothrombin [id number] Lupus anticoagulant Anticardiolipin antibodies Elevated serum homocysteine Heparin-induced thrombocytopenia Other congenital or acquired thrombophilia Stroke (< 1 month) Elective arthroplasty Hip, pelvis, or leg fracture Acute spinal cord injury (< 1 month) Prophylaxis Regimen: Total Risk Factor Score Risk Level Prophylaxis Regimen 0-1 Low Early ambulation 2 Moderate Order ONE of the following: *Sequential Compression Device (SCD) *Heparin 5000 units SQ BID 3-4 Higher Order ONE of the following medications: *Heparin 5000 units SQ TID *Enoxaparin/Lovenox 40 mg SQ daily (WT < 150 kg, CrCl > 30 mL/min) *Enoxaparin/Lovenox 30 mg SQ daily (WT < 150 kg, CrCl > 10-29 mL/min) *Enoxaparin/Lovenox 30 mg SQ BID (WT < 150 kg, CrCl > 30 mL/min) AND/OR *Sequential Compression Device (SCD) 5 or more Highest Order ONE of the following medications: *Heparin 5000 units SQ TID (Preferred with Epidurals) *Enoxaparin/Lovenox 40 mg SQ daily (WT < 150 kg, CrCl > 30 mL/min) *Enoxaparin/Lovenox 30 mg SQ daily (WT < 150 kg, CrCl > 10-29 mL/min) *Enoxaparin/Lovenox 30 mg SQ BID (WT < 150 kg, CrCl > 30 mL/min) AND *Sequential Compression Device (SCD) Assessment and Plan - Assessment (1) Syncope Code(s): R55 - Syncope and collapse Status: Acute Plan: - Head CT, cervical spine CT, and chest x-ray were all negative - EKG on admission showed sinus bradycardia with a heart rate of 50 borderline 1st degree AV block - Troponin negative X 2, no events on tele overnight, no orthostasis, electrolytes and TSH unremarkable. - Today will get ECHO and if that is normal, can be discharged for further outpatient evaluation. - Advise smoking cessation - Bradycardia may contribute to compensatory failure with some hypovolemia yesterday: not on any HR lowering medications, if ECHO ok, can have further outpatient evaluation (2) Hypocalcemia Code(s): E83.51 - Hypocalcemia Status: Acute Plan: replaced, vitamin D low, will need to go home with replacment. (3) Nutrition, metabolism, and development symptoms Code(s): R63.8 - Other symptoms and signs concerning food and fluid intake Status: Acute Plan: Regular diet \ambulate for DVT ppx Will replace electrolytes as needed - Assessment and Plan 62-year-old male with no significant past medical history presented after an episode of syncope. Differential includes vasovagal syncope, symptomatic bradycardia, orthostatic hypotension. Admitting observation for further monitoring. H&P: Quality - VTE Deep Vein Thrombosis/Pulmonary Embolism Present on Admission: No (1) Syncope Qualifiers: Syncope type: unspecified Qualified Code(s): R55 - Syncope and collapse
[2018-02-01] MEDS ORDERED: Acetaminophen 325 MG Tablet PO PRN (13:40)
--- NOTE | 2018-02-01 18:23 | ECHRPT ---
Indication: Syncope CONCLUSIONS The left ventricular systolic function is normal with an estimated ejection fraction in the range of 55-60%. Left ventricular diastolic function parameters are normal. Trace mitral valve regurgitation. There is trace tricuspid valve regurgitation. BP: / HR: Rhythm: MEASUREMENTS (Male / Female) Normal Values Technical Quality:Fair 2D ECHO LV Diastolic Diameter PLAX 5.3 cm 4.2 - 5.9 / 3.9 - 5.3 cm LV Systolic Diameter PLAX 3.7 cm IVS Diastolic Thickness 0.9 cm 0.6 - 1.0 / 0.6 - 0.9 cm LVPW Diastolic Thickness 1.0 cm 0.6 - 1.0 / 0.6 - 0.9 cm LV Relative Wall Thickness 0.4 RV Internal Dim ED PLAX 3.5 cm LVOT Diameter 2.5 cm Aortic Root Diameter 3.4 cm LA Systolic Diameter LX 3.7 cm 3.0 - 4.0 / 2.7 - 3.8 cm M-MODE AV Cusp Separation MM 2.2 cm DOPPLER AV Peak Velocity 145.0 cm/s AV Peak Gradient 8.4 mmHg LVOT Peak Velocity 112.0 cm/s LVOT Peak Gradient 5.0 mmHg AV Area Cont Eq pk 3.8 cm Mitral E Point Velocity 85.4 cm/s Mitral A Point Velocity 68.1 cm/s Mitral E to A Ratio 1.3 LV E' Lateral Velocity 12.7 cm/s Mitral E to LV E' Lateral Ratio 6.7 LV E' Septal Velocity 11.6 cm/s Mitral E to LV E' Septal Ratio 7.4 TR Peak Velocity 314.0 cm/s TR Peak Gradient 39.4 mmHg Right Atrial Pressure 10.0 mmHg Pulmonary Artery Systolic Pressu 49.4 mmHg Right Ventricular Systolic Press 49.4 mmHg PV Peak Velocity 97.7 cm/s PV Peak Gradient 3.8 mmHg FINDINGS LEFT VENTRICLE Normal left ventricular size. Wall thickness is normal. The left ventricular systolic function is normal with an estimated ejection fraction in the range of 55-60%. No regional wall motion abnormalities are present. Left ventricular diastolic function parameters are normal. RIGHT VENTRICLE Normal right ventricular size and systolic function. LEFT ATRIUM The left atrial size is upper limits of normal. RIGHT ATRIUM The right atrial size is normal. ATRIAL SEPTUM Normal atrial septal thickness AORTA The aortic root and proximal ascending aorta are normal in size on limited imaging. MITRAL VALVE Structurally normal mitral valve. No mitral valve stenosis. Trace mitral valve regurgitation. AORTIC VALVE Trileaflet aortic valve. No aortic valve stenosis or regurgitation. TRICUSPID VALVE Structurally normal tricuspid valve. There is trace tricuspid valve regurgitation. The estimated pulmonary arterial pressure is 49 mmHg. PULMONARY VALVE No pulmonary valve regurgitation or stenosis. VESSELS The inferior vena cava is normal in size. PERICARDIUM No pericardial effusion. Farshad Wilson DO (Electronically Signed) Final Date:01 February 2018 18:22
[2018-02-02 04:04] LABS: Hematocrit 39.7 % (39.0-51.0); Hemoglobin 13.5 gm/dL (13.0-17.0); Mean Corpuscular HGB Conc 33.9 % (32.0-36.0); Mean Corpuscular Volume 94.4 fL (80.0-100.0); Mean Platelet Volume 7.6 fL (7.0-11.0); Platelet Count 196 th/mm3 (150-450); Red Blood Count 4.21 mil/mm3 (4.50-5.90); Red Cell Distribution Width 13.4 % (11.6-17.2); White Blood Count 6.9 th/mm3 (4.0-11.0)
[2018-02-02 04:17] LABS: Calcium 8.5 mg/dL (8.5-10.1); Carbon Dioxide 27.9 meq/L (21.0-32.0)
--- NOTE | 2018-02-02 06:52 | ECG ---
Date Performed: 01/31/2018 Time Performed: 15:55:31 PTAGE: 62 years EKG: SINUS BRADYCARDIA BORDERLINE ECG NO PREVIOUS TRACING DOCTOR: Clarence Muñoz Interpretating Date/Time 02/02/2018 06:48:47
[2018-02-02 08:36] VITALS: BP 137/82; PULSE 44; RESP 16; TEMP 98; O2SAT 97
--- NOTE | 2018-02-02 10:31 | P.DS ---
<Jagdish Flower Jesus - Last Filed: 02/02/18 11:39> Date of admission: 01/31/18 19:07 Primary care physician: UNKNOWN Brief History from admission: 62-year-old male with no significant past medical history who is in [facility] visiting his daughters for the holidays presented to the emergency room after a syncopal episode. Patient was in his normal state of health and states on the day of admission he had lunch with his daughters and a couple of beers (doesn't normally drink alcohol). He states he normally drinks juice/water throughout the day but today he only had the beers and coffee in the morning. He then accompanied his daughter to a bingo ervin while standing in a crowded/warm area he fainted. He states he remembers being agitated that the line was moving slowly and the next thing he knew he was on the ground. Witnesses stated he fell to the ground and hit his head - was told he was out for roughly 30 seconds. He was told he stood back up and fainted again but he does not recall this. Witnesses also stated he appeared very pale and diaphoretic. EMS was called and they reported a HR in the 30's on arrival. Patient states he has " had a slow heart rate his whole life." He states he never had any pain and denies any pain now. no loss of bowel/urinary incontinence No chest pain, SOB, N/V, vision changes, SRIVASTAVA, diarrhea, vomiting DS: Diagnosis - Discharge Diagnosis (1) Syncope Status: Acute (2) Hypocalcemia Status: Acute (3) Nutrition, metabolism, and development symptoms Status: Acute DS: Summary Hospital Course: 62-year-old male with no significant past medical history presented after an episode of syncope. Differential included vasovagal syncope, symptomatic bradycardia, orthostatic hypotension. Imaging including CT spine, chest x-ray and head CT were all negative. Orthostatic vital signs were normal, patient was put on telemetry and was persistently bradycardic in the 50s with no signs of AV block. Patient had no further episodes of dizziness during the hospitalization. An echocardiogram showed no abnormalities and patient was discharged home with a presumed vasovagal syncopal episode. Was told to follow- up with his primary doctor when he returns home to [place]. - Time Spent with Patient Total time spent providing and/or coordinating discharge services: Less than 30 minutes - Quality: VTE Deep Vein Thrombosis/Pulmonary Embolism Present on Admission: No Exam Vital signs: Vital Signs 02/01/18 12:13 02/01/18 16:48 02/01/18 20:00 Temperature 97.5 F L 98.0 F 98.2 F Pulse Rate 43 L 45 L 44 L Respiratory Rate 18 18 18 Blood Pressure 128/68 146/77 H 134/76 Pulse Oximetry 98 95 99 02/02/18 00:00 02/02/18 04:00 02/02/18 08:00 Temperature 98.0 F 97.9 F 98.0 F Pulse Rate 42 L 43 L 44 L Respiratory Rate 16 18 16 Blood Pressure 122/67 113/70 137/82 Pulse Oximetry 99 96 97 Intake & Output 02/01/18 02/02/18 02/02/18 18:59 06:59 18:59 Intake Total 720 / 720 Balance 720 / 720 Intake: Oral 720 / 720 Other: # Voids 4 4 Date of Last Bowel Movement 02/01/18 Narrative: GENERAL: Pleasant gentleman laying in bed in no acute distress. Answering questions appropriately. SKIN: Warm and dry. HEAD: Atraumatic. Normocephalic. No tenderness on exam EYES: Pupils equal and round. No scleral icterus. No injection or drainage. ENT: No nasal bleeding or discharge. Mucous membranes pink and moist. NECK: Trachea midline. No JVD. CARDIOVASCULAR: Regular rate and rhythm. Heart rate in the 50s RESPIRATORY: No accessory muscle use. Clear to auscultation. Breath sounds equal bilaterally. GASTROINTESTINAL: Abdomen soft, non-tender, nondistended. Hepatic and splenic margins not palpable. MUSCULOSKELETAL: Extremities without clubbing, cyanosis, or edema. No obvious deformities. NEUROLOGICAL: Awake and alert. No cranial nerve deficits. Motor grossly within normal limits. Five out of 5 muscle strength in the arms and legs. Normal speech. PSYCHIATRIC: Appropriate mood and affect; insight and judgment normal. Results Procedures completed during hospitalization: None Labs on day of discharge: Labs from last 24 hours 02/02/18 02/02/18 03:37 03:37 WBC 6.9 RBC 4.21 L Hgb 13.5 Hct 39.7 MCV 94.4 MCH 32.0 MCHC 33.9 RDW 13.4 Plt Count 196 MPV 7.6 Sodium 142 Potassium 4.0 Chloride 110 H Carbon Dioxide 27.9 Anion Gap 4 L BUN 17 Creatinine 1.18 Estimated GFR 62 L Random Glucose 104 Calcium 8.5 - Impressions ITS Impressions Cervical Spine CT 01/31/18 15:57 CONCLUSION: 1. No acute fracture or subluxation. Chest X-Ray 01/31/18 15:57 CONCLUSION: 1. No acute cardiopulmonary disease. Head CT 01/31/18 15:57 CONCLUSION: 1. No acute intracranial abnormality. . <Orestes Quispe Paul - Last Filed: 02/02/18 17:20> Date of admission: 01/31/18 19:07 Primary care physician: UNKNOWN Patient update on day of discharge: The exam, history, and the medical decision-making described in the above note were completed with the assistance of the resident physician. I reviewed and agree with the findings presented. I attest that I had a [id number] encounter with the patient on the same day, and personally performed and documented my assessment and findings in the medical record. He was not symptomatic at all overnight when he was bradycardic. He reports a known "low heart rate" for years. I do not believe his syncope was from the bradycardia but cannot rule it out. tele normal besides sinus radha, echo normal , troponins normal. Discussed that he needs to follow up with his PCP and have further evaluation of his bradycardia there but do not believe that one episode of syncope giving circumstances warrants pacemaker evaluation here on [place] of state. discussed r/b of leaving and he would like to continue workup as outpatient with his PCP with whom he has a good relationship. DS: Diagnosis - Discharge Diagnosis (1) Syncope Status: Acute (2) Hypocalcemia Status: Acute (3) Nutrition, metabolism, and development symptoms Status: Acute DS: Summary - Time Spent with Patient Total time spent providing and/or coordinating discharge services: Exam Vital signs: Vital Signs 02/01/18 20:00 02/02/18 00:00 02/02/18 04:00 Temperature 98.2 F 98.0 F 97.9 F Pulse Rate 44 L 42 L 43 L Respiratory Rate 18 16 18 Blood Pressure 134/76 122/67 113/70 Pulse Oximetry 99 99 96 02/02/18 08:00 Temperature 98.0 F Pulse Rate 44 L Respiratory Rate 16 Blood Pressure 137/82 Pulse Oximetry 97 Intake & Output 02/01/18 02/02/18 02/02/18 18:59 06:59 18:59 Intake Total 720 / 720 Balance 720 / 720 Intake: Oral 720 / 720 Other: # Voids 4 4 Date of Last Bowel Movement 02/01/18 Narrative: GENERAL: NAD, walking around SKIN: Warm and dry. HEAD: Atraumatic. Normocephalic. No tenderness on exam EYES: Pupils equal and round. No scleral icterus. No injection or drainage. ENT: No nasal bleeding or discharge. Mucous membranes pink and moist. NECK: Trachea midline. No JVD. CARDIOVASCULAR: radha rate and reg rhythm. RESPIRATORY: No accessory muscle use. Clear to auscultation. Breath sounds equal bilaterally. GASTROINTESTINAL: Abdomen soft, non-tender, nondistended. Hepatic and splenic margins not palpable. MUSCULOSKELETAL: Extremities without clubbing, cyanosis, or edema. No obvious deformities. NEUROLOGICAL: Awake and alert. No cranial nerve deficits PSYCHIATRIC: Appropriate mood and affect; insight and judgment normal. Results Labs on day of discharge: Labs from last 24 hours 02/02/18 02/02/18 03:37 03:37 WBC 6.9 RBC 4.21 L Hgb 13.5 Hct 39.7 MCV 94.4 MCH 32.0 MCHC 33.9 RDW 13.4 Plt Count 196 MPV 7.6 Sodium 142 Potassium 4.0 Chloride 110 H Carbon Dioxide 27.9 Anion Gap 4 L BUN 17 Creatinine 1.18 Estimated GFR 62 L Random Glucose 104 Calcium 8.5 - Impressions ITS Impressions Cervical Spine CT 01/31/18 15:57 CONCLUSION: 1. No acute fracture or subluxation. Chest X-Ray 01/31/18 15:57 CONCLUSION: 1. No acute cardiopulmonary disease. Head CT 01/31/18 15:57 CONCLUSION: 1. No acute intracranial abnormality. . Discharge Plan - Discharge Order Discharge Orders: Discharge Order (Routine); Ordered 02/01/18 Ordered By: Orestes Quispe Hospitalist Clear for Discharge (Routine); Ordered 02/01/18 Ordered By: Orestes Quispe - Physicians Team Primary Care Provider: UNKNOWN, Attending Provider: Orestes Quispe
== END 2018-02-02 08:43 | disposition home or self-care (01) ==
LOC: NEPC 15:31 → NEDA 15:31 → NEPHCDU 21:44
PROVIDERS: ADMIT Family Medicine; ATTEND Family Medicine